=== PATIENT | male | born 1975 | race Caucasian/White ===

== ENCOUNTER 2016-08-25 20:33 | Emergency (ER) | payer SELFPAY ==
[~2016-08-25] VITALS: Ht 177.8 cm; Wt 65.1 kg
[2016-08-25 20:34] VITALS: BP 117/84
[2016-08-25] MEDS ORDERED: NEOSPORIN OINT 0.9 GM PKT (FLOOR STOCK) As Ordered ONE (20:42)
[2016-08-26] MEDS ORDERED: AUGM500T34 PO (06:11)
== END 2016-08-25 22:43 | disposition left against medical advice (07) ==
LOC: M ED 20:33
DX: M79.672 Pain in left foot (principal); Z53.29 Procedure and treatment not carried out because of patient's decision for other reasons

== ENCOUNTER 2016-08-26 05:52 | Emergency (ER) | payer SELFPAY ==
[~2016-08-26] VITALS: Ht 177.8 cm; Wt 65.9 kg
[2016-08-26] MEDS ORDERED: AUGM500T34 PO (06:11)
[2016-08-26] MEDS ORDERED: AMPICILLIN SOD/SULBACTAM SOD 3 GM in D5W MINI-BAG PLUS 100 ML IV ONE (06:15)
[2016-08-26 06:58] VITALS: BP 123/92
== END 2016-08-26 07:00 | disposition home or self-care (01) ==
LOC: M ED 05:52
DX: L97.529 Non-pressure chronic ulcer of other part of left foot with unspecified severity (principal); L03.126 Acute lymphangitis of left lower limb; F17.200 Nicotine dependence, unspecified, uncomplicated; Z91.018 Allergy to other foods

== ENCOUNTER 2016-10-18 08:49 | Emergency (ER) | payer SELFPAY ==
[~2016-10-18] VITALS: Ht 177.8 cm; Wt 62.1 kg
[~2016-10-18 08:49] MED LIST: AUGM500T34 PO
[2016-10-18] MEDS ORDERED: FLUTISP (11:08)
[2016-10-18 11:19] VITALS: BP 124/87
[2016-10-18] MEDS ORDERED: KENAAER3 TOP (11:19)
== END 2016-10-18 11:23 | disposition home or self-care (01) ==
LOC: M ED 08:49
DX: B35.3 Tinea pedis (principal); L30.9 Dermatitis, unspecified; F17.210 Nicotine dependence, cigarettes, uncomplicated